=== PATIENT | male | born 1995 | race Two or more races ===

== ENCOUNTER 2021-04-20 05:48 | Emergency (ER) | payer OTHER ==
[~2021-04-20] VITALS: Ht 182.9 cm; Wt 83.9 kg
[2021-04-20] MEDS ORDERED: HYDROXYZINE HCL25 MG PO (08:40)
== END 2021-04-20 08:54 | disposition home or self-care (01) ==
LOC: ER 05:48
DX: R06.02 Shortness of breath (principal); F41.8 Other specified anxiety disorders